=== PATIENT | female | born 1960 | race Caucasian/White ===

== ENCOUNTER 2019-01-11 18:04 | Observation (INO) ==
[2019-01-11] MEDS ORDERED: Ondansetron 4 MG/2 ML VIAL IVP ONE (18:30)
[2019-01-11] MEDS ORDERED: *HR* FentaNYL (PF) 100 MCG/2 ML VIAL IVP ONE (18:35)
[2019-01-11 18:40] LABS: Basophils % 0.3 %; Eosinophils % 0.1 %; Hematocrit 46.3 % (35.3-44.9); Hemoglobin 15.7 g/dL (11.5-15.4); Immature Granulocytes % 0.4 % (0-4); Lymphocytes # 1.6 K/mcL (0.6-4.6); Lymphocytes % 21.6 %; Mean Corpuscular HGB Conc 33.9 g/dL (31.6-35.5); Mean Corpuscular Volume 91.3 fL (83.0-100.0); Mean Platelet Volume 9.3 fL (9.4-12.4); Monocytes # 0.1 K/mcL (0.0-1.3); Monocytes % 1.9 %; Neutrophils # 5.6 K/mcL (1.6-8.9); Platelet Count 351 K/mcL (140-400); Red Blood Count 5.07 M/mcL (3.82-4.97); Red Cell Distribution Width 13.1 % (11.5-14.5); Segmented Neutrophils % 75.7 %; White Blood Count 7.4 K/mcL (4.3-11.1)
--- NOTE | 2019-01-11 18:40 | Emergency Department Note ---
Disposition Clinical Impression: Chest pain Qualifiers: Chest pain type: unspecified Qualified Code(s): R07.9 - Chest pain, unspecified Vomiting Qualifiers: Vomiting type: unspecified Vomiting Intractability: non-intractable Nausea presence: with nausea Qualified Code(s): R11.2 - Nausea with vomiting, unspecified Disposition: Admitted As Inpatient Condition: Fair Referrals: NONE,PCP [Primary Care Provider] - Time of Disposition: 20:45 General Adult HPI - General Stated complaint: CP Time Seen by Provider: 01/11/19 18:07 Nursing Notes Reviewed: Yes Vital Signs Reviewed: Yes - History of Present Illness HPI Narrative: Patient presents with back pain for the last several days which is severe and different than her normal back pain and for the last 2 hours states a constant sharp chest pain and this is severe also. She does have associated vomiting which is frequent and she denies any exertional chest pain. No diaphoresis or dyspnea. No pleuritic chest pain. No pain or swelling of the lower extremities. I did review the previous record. No numbness of the extremities. Social history: Smoker, no alcohol or drugs. She is here with her sister - Related Data Allergies Allergy/AdvReac Type Severity Reaction Status Date / Time meperidine [From Demerol] Allergy See Verified 01/11/19 19:38 Comments Review of Systems: Constitutional: No fever Vision: No blurred vision ENT: No rhinorrhea Respiratory: No cough Allergic: No allergies : No blood in urine GI: No blood in stool Hematologic: No bruising Dermatologic: No skin rash Musculoskeletal: No pain in the extremities Neuro: No numbness of the extremities Physical Exam CONSTITUTIONAL: Well-appearing; well-nourished; A&O X 3, in no apparent distr ess HEAD: Normocephalic; atraumatic EYES: PERRL, no scleral icterus NOSE: The nose is normal in appearance without rhinorrhea NECK: No JVD or distended neck veins RESP: Normal chest excursion with respiration; breath sounds clear and equal bilaterally; no wheezes, rhonchi, or rales CARD: Regular rhythm, without murmurs, rub or gallop ABD: Non-distended; non-tender, soft, without rigidity, rebound or guarding CHEST: Mild discomfort with palpation but normal appearance SKIN: Normal for age and race; warm and dry without diaphoresis ; no apparent lesions EXTREMITIES: Pulses are 2 plus and equal times 4 extremities, no peripheral edema or calf muscle pain Course Vital Signs Temperature 97.7 F 01/11/19 18:56 Pulse Rate 70 01/11/19 18:56 Respiratory Rate 20 01/11/19 18:56 Blood Pressure 160/75 01/11/19 18:56 O2 Sat by Pulse Oximetry 100 01/11/19 18:56 Temperature 97.7 F 01/11/19 18:56 Pulse Rate 70 01/11/19 18:56 Respiratory Rate 20 01/11/19 18:56 Blood Pressure 160/75 01/11/19 18:56 O2 Sat by Pulse Oximetry 100 01/11/19 18:56 Oxygen Delivery Oxygen Delivery Room Air Medical Decision Making - MDM Narrative Medical decision making narrative: Patient's symptoms with the severe back pain and chest pain combined as well as with emesis for dissection so a CT as well as abdomen and pelvis angiogram will be done and as well the patient does have orders for EKG, monitor, labs including troponin. I did review the EKG showing a sinus arrhythmia with nonspecific ST changes but without evidence of ST elevation CA. Patient will be watched closely on the monitor and pulse oximeter. 1839 I did review the patient's test results. I did see her again just a few minutes ago. She is improved but her symptoms are not resolved. Concern for the chest pain given her age and comorbidities and smoking history and I did speak with Dr. Villalba who accepts the patient for admission 2044 - Medical Records Medical records reviewed: Yes I reviewed the patient's medical records. - Lab Data Lab results reviewed: Yes I reviewed the patient's lab results. Result diagrams: 01/11/19 18:14 01/11/19 18:14 Lab Results 01/11/19 01/11/19 01/11/19 Range/Units 18:14 18:14 18:47 WBC 7.4 (4.3-11.1) K/mcL RBC 5.07 H (3.82-4.97) M/mcL Hgb 15.7 H (11.5-15.4) g/dL Hct 46.3 H (35.3-44.9) % MCV 91.3 (83.0-100.0) fL MCH 31.0 (28.0-33.3) pg MCHC 33.9 (31.6-35.5) g/dL RDW 13.1 (11.5-14.5) % Plt Count 351 (140-400) K/mcL MPV 9.3 L (9.4-12.4) fL Immature Gran % 0.4 (0-4) % Seg Neutrophils % 75.7 % Lymphocytes % 21.6 % Monocytes % 1.9 % Eosinophils % 0.1 % Basophils % 0.3 % Neutrophils # 5.6 (1.6-8.9) K/mcL Lymphocytes # 1.6 (0.6-4.6) K/mcL Monocytes # 0.1 (0.0-1.3) K/mcL Eosinophils # 0.0 (0.0-0.6) K/mcL Basophils # 0.0 (0.0-0.2) K/mcL Sodium 140 (136-145) mEq/L Potassium 3.8 (3.5-5.1) mEq/L Chloride 103 (98-107) mEq/L Carbon Dioxide 26 (23-29) mEq/L BUN 11 (6-20) mg/dL Creatinine 0.84 (0.60-1.20) mg/dL Est GFR ( Amer) > 60 (> 60) Est GFR (Non-Af Amer) > 60 (> 60) BUN/Creatinine Ratio 13 (6-26) Glucose 138 H (70-105) mg/dL Calculated Osmolality 292 (280-300) Calcium 10.6 H (8.6-10.3) mg/dL Total Bilirubin 0.5 (0.3-1.0) mg/dL Direct Bilirubin 0.1 (0.0-0.2) mg/dL Indirect Bilirubin 0.4 (0.0-1.2) mg/dL AST 30 (13-39) Units/L ALT 35 (7-52) Units/L Alkaline Phosphatase 83 (34-104) Units/L Troponin I < 0.03 (< 0.04) ng/mL Serum Total Protein 8.6 (6.4-8.9) g/dL Albumin 4.9 (3.5-5.7) g/dL Globulin 3.7 H (2.4-3.5) g/dL Albumin/Globulin Ratio 1.3 (1.1-2.2) Lipase 9 L (11-82) Units/L Blood Type O POSITIVE Antibody Screen NEGATIVE - Radiology Data Radiology results reviewed: Yes I reviewed the patient's radiology results.
[2019-01-11 18:56] LABS: BUN/Creatinine Ratio 13 (6-26); Blood Urea Nitrogen 11 mg/dL (6-20); Calcium 10.6 mg/dL (8.6-10.3); Carbon Dioxide 26 mEq/L (23-29); Chloride 103 mEq/L (98-107); Glucose 138 mg/dL (70-105); Osmolality,Calculated 292 (280-300); Potassium 3.8 mEq/L (3.5-5.1); Sodium 140 mEq/L (136-145); Troponin I < 0.03 ng/mL (< 0.04); eGFR For African Americans > 60 (> 60); eGFR For Non-African Americans > 60 (> 60)
[2019-01-11] MEDS ORDERED: *HR* Promethazine 25 MG/ML VIAL IVP ONE (19:26)
[2019-01-11] MEDS: Isovue-370 500 ML BOTTLE IVP ONE ×2 (19:57→19:58)
[2019-01-11 20:29] LABS: Alanine Aminotransferase 35 Units/L (7-52); Albumin 4.9 g/dL (3.5-5.7); Albumin/Globulin Ratio 1.3 (1.1-2.2); Alkaline Phosphatase 83 Units/L (34-104); Aspartate Amino Transferase 30 Units/L (13-39); Bilirubin,Direct 0.1 mg/dL (0.0-0.2); Bilirubin,Indirect 0.4 mg/dL (0.0-1.2); Bilirubin,Total 0.5 mg/dL (0.3-1.0); Globulin 3.7 g/dL (2.4-3.5); Lipase 9 Units/L (11-82); Total Protein 8.6 g/dL (6.4-8.9)
[2019-01-11] MEDS ORDERED: Ondansetron 4 MG/2 ML VIAL ONE (20:51)
[2019-01-11] MEDS ORDERED: Ondansetron 4 MG/2 ML VIAL IVP PRN (20:55)
[2019-01-12] MEDS ORDERED: Naloxone 0.4 MG/ML INJ IVP PRN (00:21)
[2019-01-12] MEDS ORDERED: 0.9 % Sodium Chloride 1,000 ML IVC ONE (00:34)
[2019-01-12] MEDS: Ondansetron 4 MG/2 ML VIAL IVP PRN ×3 (01:01→16:52)
[2019-01-12] MEDS: Nicotine 21 MG PATCH.TD24 TD SCH ×2 (02:34→08:04)
--- NOTE | 2019-01-12 02:57 | Internal Med History&Physical ---
Date of Encounter: 01/12/19 Time of Encounter: 00:05 Internal Medicine - H&P: HPI Chief complaint: Nausea and vomiting Admitted From: Emergency Dept Plans for Post Hospital Care: Home History of present illness: Ms. De Santiago is a 58 year old female Patient presented to the emergency room with back pain for several days then evolving into sharp chest pain with nausea and vomiting today. She says that the nausea vomiting started this morning, she has had similar episodes like this a few years ago when she had her gallbladder removed. She says that the vomiting is very similar to that. She says that her chest pain is likely secondary to her vomiting as she has been vomiting multiple times today. She has had back pain for the last several days but it seems to have become worse. She denies injuries, falls. In the emergency department the patient's vital signs: Temperature 97.7, pulse 70, respirations 20/m, blood pressure 160/75, O2 saturation 100. CBC: Notable for hemoglobin of 15.7 BMP: Notable for glucose of 138, otherwise within normal limits Initial troponin undetectable Calcium: 10.6 Lipase: 9 Liver function tests within normal limits Chest x-ray: Clear lungs, no acute abnormality Chest CT dissection study: No evidence of thoracic or abdominal aortic dissection and overall no acute abnormality within the chest or abdomen. Radiologist did detect some suspicious artifact in the right humerus and recommended a right humeral radiograph. Right humerus x-ray: Slightly molted appearance but improved from the CT study. Appearance likely due to osteoporosis. Radiologist recommended patient be e valuated for possible multiple myeloma however. EKG: Sinus with no ischemic changes Patient received 50 g of fentanyl, and ondansetron and promethazine. She resided there is to the hospital for further monitoring. Upon my evaluation, patient was resting comfortably in hospital bed asleep. She was easily awakened. She confirms that her chest pain was secondary to cough and it is much better now. She denied abdominal pain, diarrhea and constipation. She has had nausea, and still feels some nauseousness. She has vomited a few times since arrival. She is a full code. She states that her mother had history of hypertension, but denies other significant family medical history. Past Med Surg Social Fam HX - Past Medical History Medical history: no medical history, non-contributory Psychiatric history: no psych history - Past Surgical History Surgical History: cholecystectomy - Social History Smoking Status: Current every day smoker Smokeless Tobacco Status: No Alcohol use: none Drug use: none Internal Medicine - H&P: Meds Allergy/AdvReac Type Severity Reaction Status Date / Time meperidine [From Demerol] Allergy See Verified 01/11/19 19:38 Comments All Systems PM: A 10-system review of systems was performed and is negative for pertinent findings except as documented above in the HPI. - Constitutional Vitals: Temp Pulse Resp BP Pulse Ox 98.6 F 84 16 149/94 100 01/11/19 22:26 01/11/19 22:26 01/11/19 22:26 01/11/19 22:26 01/11/19 22:26 General appearance: Present: cooperative, A&O X 3, pleasant, no acute distress, answers questions appropriately Exam: - - Head Head exam: Present: normal inspection - Eye Eye exam: Present: EOMI, normal appearance - Respiratory Respiratory exam: Present: CTAB. Absent: rales, respiratory distress, rhonchi, wheezes - Cardiovascular Cardiovascular exam: Present: RRR. Absent: diastolic murmur, systolic murmur - GI/Abdominal GI/Abdominal exam: Present: normal bowel sounds, soft. Absent: tenderness - Extremities Exam Extremities exam: Present: warm, radial pulses palpable and symmetrical. Absent: calf tenderness, pedal edema, tenderness - Back Exam Back exam: Present: normal inspection. Absent: CVA tenderness (L), CVA tenderness (R), paraspinal tenderness, tenderness, vertebral tenderness - Neurological Exam Neurological exam: Present: no focal deficits, strengths equal and symetr throughout. Absent: motor sensory deficit, facial droop, speech deficit - Skin Skin exam: Present: dry, normal color, warm Internal Med - H&P Results - Labs CBC & Chem 7: 01/11/19 18:14 01/11/19 18:14 Labs: Short CBC 01/11/19 Range/Units 18:14 WBC 7.4 (4.3-11.1) K/mcL Hgb 15.7 H (11.5-15.4) g/dL Hct 46.3 H (35.3-44.9) % Plt Count 351 (140-400) K/mcL Neutrophils # 5.6 (1.6-8.9) K/mcL BMP 01/11/19 18:14 Sodium 140 Potassium 3.8 Chloride 103 Carbon Dioxide 26 BUN 11 Creatinine 0.84 Glucose 138 H Calcium 10.6 H Cardiac Enzymes 01/11/19 01/12/19 Range/Units 18:14 00:25 Troponin I < 0.03 < 0.03 (< 0.04) ng/mL Liver Function 01/11/19 Range/Units 18:14 Total Bilirubin 0.5 (0.3-1.0) mg/dL Direct Bilirubin 0.1 (0.0-0.2) mg/dL AST 30 (13-39) Units/L ALT 35 (7-52) Units/L Alkaline Phosphatase 83 (34-104) Units/L Albumin 4.9 (3.5-5.7) g/dL - Impressions ITS Impressions Chest X-Ray 01/11/19 18:11 IMPRESSION: Clear lungs. No acute abnormality. D/ / Mj Kaufman MD / Mj Kaufman MD Interpreting Provider: Mj Kaufman MD Dissection 01/11/19 18:35 IMPRESSION: No evidence of thoracic or abdominal aortic dissection. Overall, no acute abnormality detected within the chest. Mottled appearance of the right humerus which is likely secondary to beam hardening artifact, but is somewhat suspicious. Correlate with any upper extremity pain. A right humeral radiograph is recommended at this time. No acute abnormality detected within the abdomen pelvis. Mild diverticulosis of the large bowel, but without CT evidence of diverticulitis. D/ / Stephen Anton MD / Stephen Anton MD Interpreting Provider: Stephen Anton MD Humerus X-Ray 01/11/19 20:28 IMPRESSION: Slightly mottled appearance in the proximal shaft of the right humerus. Humerus appears much more normal than was suggested on the CT study. Appearance is favored to be due to osteoporosis. RECOMMENDATION: As a precaution, patient should be evaluated for possible multiple myeloma. D/ / Mj Kaufman MD / Mj Kaufman MD Interpreting Provider: jM Kaufman MD - Assessment and Plan (1) Chest pain Current Visit: Yes Status: Acute Assessment and plan: Chest pain improved, likely secondary to vomiting. Patient denies significant cardiac history. Repeat troponin also undetectable Cardiac telemetry Continue to trend troponins. Echocardiogram in the morning Qualifiers: Chest pain type: unspecified Qualified Code(s): R07.9 - Chest pain, unspecified (2) Back pain Current Visit: Yes Status: Acute Assessment and plan: No tenderness on exam. Imaging negative for abnormalities. Possibly worsened to musculoskeletal strain due to vomiting. Radiology did recommend working up for multiple myeloma due to suspicious lesion seen in the humerus. Patient also has marginally high calcium level. Her renal function is not impaired and she is not anemic however. Consider obtaining Holmen/lambda light chain ratio Pain management as needed Continue to monitor Qualifiers: Back pain location: thoracic back pain Chronicity: acute Back pain laterality: unspecified Qualified Code(s): M54.6 - Pain in thoracic spine (3) Vomiting Current Visit: Yes Status: Acute Assessment and plan: Patient has had nausea and vomiting for the last 12 hours or so. She denies eating new foods as well as sick contacts. Her symptoms do improve after Zofran and antinausea medicines. She does not have diarrhea. Symptoms could be secondary to a viral gastritis. Patient does not have an elevated white count, and she has a normal lipase. Vital signs are also stable. Continue to monitor Continue symptomatic management IV fluids IV Zofran as needed Qualifiers: Vomiting type: unspecified Vomiting Intractability: non-intractable Nausea presence: with nausea Qualified Code(s): R11.2 - Nausea with vomiting, unspecified (4) Current nicotine use Current Visit: Yes Status: Acute Assessment and plan: Nicotine patch (5) DVT prophylaxis Current Visit: Yes Status: Acute Assessment and plan: Subcutaneous heparin - Time Spent With Patient Total time spent is greater than 50% in coordination of care (as documented) at patient's floor/unit and/or counseling patient: Greater than 35 minutes
[2019-01-12] MEDS: *HR* Heparin 5,000 UNIT/ML VIAL SQ SCH ×2 (05:34→16:50)
[2019-01-12 08:03] LABS: Hematocrit 44.3 % (35.3-44.9); Hemoglobin 14.6 g/dL (11.5-15.4); Mean Corpuscular Hemoglobin 31.1 pg (28.0-33.3); Mean Corpuscular Volume 94.5 fL (83.0-100.0); Mean Platelet Volume 9.7 fL (9.4-12.4); Platelet Count 318 K/mcL (140-400); Red Blood Count 4.69 M/mcL (3.82-4.97); Red Cell Distribution Width 13.5 % (11.5-14.5); White Blood Count 9.5 K/mcL (4.3-11.1)
[2019-01-12 08:17] LABS: BUN/Creatinine Ratio 19 (6-26); Blood Urea Nitrogen 15 mg/dL (6-20); Calcium 10.2 mg/dL (8.6-10.3); Carbon Dioxide 22 mEq/L (23-29); Chloride 102 mEq/L (98-107); Glucose 113 mg/dL (70-105); Osmolality,Calculated 296 (280-300); Potassium 3.7 mEq/L (3.5-5.1); Sodium 142 mEq/L (136-145); eGFR For African Americans > 60 (> 60); eGFR For Non-African Americans > 60 (> 60)
[2019-01-12] MEDS ORDERED: Prochlorperazine 10 MG/2 ML VIAL IVP STA (11:28)
--- NOTE | 2019-01-12 13:22 | Event Note ---
Date of Encounter: 01/12/19 Time of Encounter: 11:00 Ratio was seen and examined at bedside patient is complaining of diffuse abdominal pain pain radiating to her back. Nursing reports that patient did have an episode of green bile vomit this morning. However at this time patient is currently retching asking for Dilaudid. Advised patient that we will continue with current pain medication and antiemetic we will check right upper quadrant ultrasound
[2019-01-12] MEDS ORDERED: Perflutren Lipid Microsphere 1.3 ML in 0.9 % Sodium Chloride 8.7 ML IVP ONE (15:24)
--- NOTE | 2019-01-12 16:08 | Electrocardiograph Report ---
[address] [address] Test Date: 2019-01-11 Pat Name: Thelma De Santiago Department: EXAM5 Room: 3B Gender: F [employer]: : [id number] Requested By: Henry Pulido Order Number: [id number] Reading MD: Luis Nieto Measurements Intervals Jarrell Rate: 79 P: 83 MD: 133 QRS: 85 QRSD: 94 T: -82 QT: 396 QTc: 454 Interpretive Statements Sinus arrhythmia Nonspecific ST-T changes Electronically Signed On 01-12-2019 16:07:15 EDT by Luis Nieto
[2019-01-12] MEDS: Pantoprazole 40 MG VIAL IVP SCH (16:52)
[2019-01-13] MEDS: Ondansetron 4 MG/2 ML VIAL IVP PRN ×2 (03:30→11:24)
[2019-01-13] MEDS: *HR* Heparin 5,000 UNIT/ML VIAL SQ SCH (05:10)
[2019-01-13] MEDS: Pantoprazole 40 MG VIAL IVP SCH (05:10)
[2019-01-13] MEDS: Nicotine 21 MG PATCH.TD24 TD SCH (08:24)
[2019-01-13 10:20] LABS: Amphetamine Screen,Urine Negative ng/mL (Cutoff=1000); Barbiturate Screen,Urine Negative ng/mL (Cutoff=200)
[2019-01-13 10:22] LABS: Benzodiazepines Screen,Urine Positive ng/mL (Cutoff=300); Bilirubin,Urine Small (Negative); Blood,Urine Trace (Negative); Cannabinoid Screen,Urine Negative ng/mL (Cutoff = 50); Clarity,Urine Clear (Clear); Cocaine Screen,Urine Negative ng/mL (Cutoff= 300); Color,Urine Yellow (Yellow); Glucose,Urine (UA) Normal (Normal); Ketones,Urine 40 mg/dL (Negative); Leukocyte Esterase,Urine Negative (Negative); Nitrite,Urine Negative (Negative); Opiate Screen,Urine Negative ng/mL (Cutoff=300); Phencyclidine Screen,Urine Negative ng/mL (Cutoff=25); Protein,Urine 30 mg/dL (Neg-Trace); Specific Gravity,Urine > 1.030 (1.010-1.025); Urobilinogen,Urine Normal (Normal)
[2019-01-13 10:26] LABS: Bacteria,Urine None Seen per hpf (None-Few); Hyaline Casts,Urine None Seen per lpf (None-Few); Squamous Epithelial Cell,Urine Moderate per lpf (None-Few); WBC,Urine 0-3 per hpf (0-3)
[2019-01-13 11:20] VITALS: BP 159/89
--- NOTE | 2019-01-13 14:42 | Discharge Summary ---
- NOTES TO OUTPATIENT PROVIDER Notes to Outpatient Provider: f/u with PCP in one week. Date of Encounter: 01/13/19 Time of Encounter: 14:34 - Discharge Diagnosis (1) Abdominal pain Priority: Primary Status: Acute Qualifiers: Abdominal location: epigastric Qualified Code(s): R10.13 - Epigastric pain (2) Chest pain Priority: Secondary Status: Acute Qualifiers: Chest pain type: unspecified Qualified Code(s): R07.9 - Chest pain, unspecified (3) Vomiting Priority: Primary Status: Acute Qualifiers: Vomiting type: unspecified Vomiting Intractability: non-intractable Nausea presence: with nausea Qualified Code(s): R11.2 - Nausea with vomiting, unspecified (4) Back pain Priority: Secondary Status: Acute Qualifiers: Back pain location: thoracic back pain Chronicity: acute Back pain laterality: unspecified Qualified Code(s): M54.6 - Pain in thoracic spine (5) DVT prophylaxis Priority: Secondary Status: Acute (6) Current nicotine use Priority: Secondary Status: Acute Hospital course: Ms. De Santiago is a 58 year old female with known past medical history of chronic tobacco dependence and migraine headaches who presented to ER with with epigastric abdominal pain and intarctable Nausea / vomiting. Pt stated her abd pain was more like when she had her gallbladder removed. Patient was admitted in the hospital and placed on gambling monitor. Her serial troponin came back as negative. Her 2D Echo showed LVEF 60-65%, mild LV diastolic dysfunction and no septal / wall motion abnormalities noticed. Her abdominal ultrasound showed Mild intra and extrahepatic bile duct dilatation status post cholecystectomy typical of reservoir effect. Since patient still complaining about abdominal pain I ordered MRCP which came back as negative for any acute pathology. Her abdominal pain with intractable nausea and vomiting seems to be secondary to gastroenteritis which resolved now. Patient is tolerating oral intake better now. So will discharge him home in a stable condition today. - Time Spent with Patient Total time spent providing and/or coordinating discharge services: - Discharge Medications Prescriptions: New Nicotine Patch [Nicoderm] 21 mg TD DAILY #30 patch.[id number] Omeprazole [PriLOSEC] 20 mg PO DAILY #30 cap Ondansetron HCl [Zofran] 4 mg PO Q8HR PRN #15 tab PRN Reason: Nausea No Action Acetaminophen/Aspirin/Caffeine [Excedrin EX] 2 tab PO TID PRN PRN Reason: Pain Home Medications: Acetaminophen/Aspirin/Caffeine [Excedrin EX] 2 tab PO TID PRN 01/13/19 [History] Nicotine Patch [Nicoderm] 21 mg TD DAILY #30 patch.[id number] 01/13/19 [Rx] Omeprazole [PriLOSEC] 20 mg PO DAILY #30 cap 01/13/19 [Rx] Ondansetron HCl [Zofran] 4 mg PO Q8HR PRN #15 tab 01/13/19 [Rx] Allergies/Adverse Reactions: Allergy/AdvReac Type Severity Reaction Status Date / Time meperidine [From Demerol] Allergy See Verified 01/13/19 10:45 Comments Date of admission: 01/11/19 21:42 Primary care physician: PCP NONE - Constitutional Vitals: Temp Pulse Resp BP Pulse Ox 98.9 F 96 16 159/89 96 01/13/19 11:19 01/13/19 11:19 01/13/19 11:19 01/13/19 11:19 01/13/19 11:19 General appearance: Present: cooperative, A&O X 3, pleasant, no acute distress, answers questions appropriately Exam: Gen: Alert, awake, Oriented to time,place and person Chest: Diminished breath sounds B/L, No wheezing, No crackles, No rales Heart: S1S2+ RRR No murmurs Abd: Soft, NT, BS +, No organomegaly Ext: No edema, pulses are palpable, No calf tenderness Neuro : No acute focal neuro deficits noticed Skin: No rash. - Patient Status Disposition: Home, Self-Care Condition: Good Overall status at discharge: patient is back to baseline - Discharge Instructions Follow Up With: Griffin Morillo MD [Partnered Physician] - 01/20/19 7:30 am () Forms: ED Satisfaction Letter - Diet and Activity Activity: increase activity as tolerated Diet: low salt diet
== END 2019-01-13 15:20 | disposition home or self-care (01) ==
LOC: EMEROOARM 18:04 → 3BNU 18:04 → SUATTDRO 21:42 → 3BNU 22:20
PROVIDERS: ADMIT Pediatrics; ATTEND Family Medicine

== ENCOUNTER 2020-08-12 18:17 | Observation (INO) ==
[2020-08-12 19:11] LABS: Basophils # 0.1 K/mcL (0.0-0.2); Basophils % 0.7 %; Eosinophils # 0.3 K/mcL (0.0-0.6); Eosinophils % 4.3 %; Hematocrit 42.1 % (35.3-44.9); Hemoglobin 14.2 g/dL (11.5-15.4); Immature Granulocytes % 0.1 % (0-4); Lymphocytes # 3.4 K/mcL (0.6-4.6); Lymphocytes % 48.9 %; Mean Corpuscular HGB Conc 33.7 g/dL (31.6-35.5); Mean Corpuscular Hemoglobin 32.1 pg (28.0-33.3); Mean Platelet Volume 9.9 fL (9.4-12.4); Monocytes # 0.6 K/mcL (0.0-1.3); Neutrophils # 2.7 K/mcL (1.6-8.9); Platelet Count 253 K/mcL (140-400); Red Blood Count 4.43 M/mcL (3.82-4.97); Red Cell Distribution Width 12.8 % (11.5-14.5)
[2020-08-12 19:12] LABS: Prothrombin Time 11.7 Seconds (9.4-12.1)
[2020-08-12 19:14] LABS: Activated Partial Thrombo Time 32.3 Seconds (26.0-36.0)
[2020-08-12 19:28] LABS: BUN/Creatinine Ratio 21 (6-26); Blood Urea Nitrogen 14 mg/dL (6-20); Calcium 9.7 mg/dL (8.6-10.3); Carbon Dioxide 27 mEq/L (23-29); Chloride 104 mEq/L (98-107); Glucose 97 mg/dL (70-105); Osmolality,Calculated 288 (280-300); Sodium 139 mEq/L (136-145); Troponin I < 0.03 ng/mL (< 0.04); eGFR For African Americans > 60 (> 60); eGFR For Non-African Americans > 60 (> 60)
[2020-08-12] MEDS ORDERED: Ondansetron 4 MG/2 ML VIAL IVP ONE (19:46)
[2020-08-12] MEDS ORDERED: Morphine Sulfate 2 MG/ML SYRINGE IVP PRN (19:46)
[2020-08-12] MEDS ORDERED: Isovue-370 500 ML BOTTLE IVP ONE (20:16)
[2020-08-12] MEDS ORDERED: methylPREDNISolone 125 MG/2 ML VIAL IVP ONE (20:35)
[2020-08-12] MEDS: Nitroglycerin 0.4 MG TAB.SUBL SL SCH ×2 (21:24→22:30)
[2020-08-12] MEDS ORDERED: Morphine Sulfate 2 MG/ML SYRINGE IVP ONE (21:35)
[2020-08-12] MEDS ORDERED: Ondansetron 4 MG/2 ML VIAL IVP PRN (23:27)
[2020-08-12] MEDS ORDERED: Naloxone 0.4 MG/ML INJ IVP PRN (23:27)
[2020-08-13] MEDS: Morphine Sulfate 2 MG/ML SYRINGE IVP PRN ×4 (00:16→08:55)
[2020-08-13] MEDS: Acetaminophen 325 MG TABLET PO PRN ×2 (00:25→14:21)
[2020-08-13] MEDS ORDERED: Ibuprofen 800 MG TABLET PO ONE (04:23)
[2020-08-13] MEDS ORDERED: *HR* Heparin 5,000 UNIT/ML VIAL SQ SCH (06:00)
[2020-08-13] MEDS ORDERED: Regadenoson 0.4 MG/5 ML SYRINGE IVP ONE (06:06)
[2020-08-13] MEDS ORDERED: *HR* LORazepam 2 MG/ML VIAL IVP ONE (09:15)
[2020-08-13 09:45] LABS: Basophils # 0.1 K/mcL (0.0-0.2); Basophils % 0.7 %; Eosinophils # 0.3 K/mcL (0.0-0.6); Eosinophils % 5.1 %; Hematocrit 39.7 % (35.3-44.9); Immature Granulocytes % 0.3 % (0-4); Lymphocytes # 2.2 K/mcL (0.6-4.6); Mean Corpuscular HGB Conc 32.7 g/dL (31.6-35.5); Mean Corpuscular Hemoglobin 31.2 pg (28.0-33.3); Mean Corpuscular Volume 95.2 fL (83.0-100.0); Mean Platelet Volume 9.5 fL (9.4-12.4); Monocytes # 0.5 K/mcL (0.0-1.3); Monocytes % 7.2 %; Neutrophils # 3.6 K/mcL (1.6-8.9); Platelet Count 216 K/mcL (140-400); Red Blood Count 4.17 M/mcL (3.82-4.97); Segmented Neutrophils % 53.7 %; White Blood Count 6.7 K/mcL (4.3-11.1)
[2020-08-13 10:24] LABS: Alanine Aminotransferase 96 Units/L (7-52); Albumin 3.7 g/dL (3.5-5.7); Albumin/Globulin Ratio 1.4 (1.1-2.2); Alkaline Phosphatase 79 Units/L (34-104); Aspartate Amino Transferase 140 Units/L (13-39); BUN/Creatinine Ratio 22 (6-26); Bilirubin,Total 0.3 mg/dL (0.3-1.0); Blood Urea Nitrogen 17 mg/dL (6-20); Calcium 8.8 mg/dL (8.6-10.3); Carbon Dioxide 27 mEq/L (23-29); Chloride 104 mEq/L (98-107); Globulin 2.7 g/dL (2.4-3.5); Glucose 97 mg/dL (70-105); Magnesium 1.8 mg/dL (1.6-2.6); Osmolality,Calculated 287 (280-300); Phosphorous 3.5 mg/dL (2.7-4.5); Potassium 3.9 mEq/L (3.5-5.1); Sodium 138 mEq/L (136-145); Total Protein 6.4 g/dL (6.4-8.9); eGFR For African Americans > 60 (> 60); eGFR For Non-African Americans > 60 (> 60)
[2020-08-13 11:26] VITALS: BP 105/74
[2020-08-13] MEDS ORDERED: *HR* LORazepam 0.5 MG TABLET PO PRN (13:18)
[2020-08-13] MEDS ORDERED: Aspirin Enteric Coated 81 MG Tablet PO SCH (14:15)
== END 2020-08-13 16:15 | disposition home or self-care (01) ==
LOC: 3NENU 18:17 → EMEROOARM 18:17 → 3NENU 22:44
PROVIDERS: ADMIT Internal Medicine; ATTEND Internal Medicine